=== PATIENT | female | born 1985 | race Caucasian/White ===

== ENCOUNTER 2016-05-31 10:58 | Emergency (ER) | payer SELFPAY ==
[~2016-05-31] VITALS: Ht 175.3 cm; Wt 104.3 kg
[2016-05-31 12:25] VITALS: BP 136/91
[2016-05-31] MEDS ORDERED: CLIN-44 PO (13:12)
[2016-05-31] MEDS ORDERED: HYDR-971 PO (13:12)
--- NOTE | 2016-05-31 13:12 | PHYS DOC ---
Past Medical History Past Medical History: Bipolar Additional Past Medical Histor: depression, polysubstance abuse Past Surgical History: No Surgical History Smoking: Less than 1pk/day Alcohol Use: None Additional Information: alcoholic quit 2 months ago Drug Use: None Adult General Chief Complaint Chief Complaint: DENTAL PROBLEM HPI HPI Patient is a 31 year old female who presents with left neck and jaw swelling starting yesterday. She states that the pain and swelling is worse with eating. She feels that it has now spread to the right side as well. She reported a subjective fever last night. She denies sore throat, cough, rash, ear pain, shortness of breath, or dental pain. She does not have a PCP but sees a psychiatrist at [facility]. She has received all of her routine vaccinations. Review of Systems Review of Systems Constitutional: Reports subjective fever. Eyes: Denies change in visual acuity, redness, or eye pain. [] HENT: Denies ear pain, nasal congestion or sore throat. Jaw pain and swelling. Respiratory: Denies cough or shortness of breath. [] Musculoskeletal: Denies back pain or joint pain. [] Integument: Denies rash or skin lesions. [] Neurologic: Denies headache, focal weakness or sensory changes. [] Allergies Allergies Allergies Coded Allergies Type Severity Reaction Last Updated Verified No Known Drug Allergies 11/21/15 No Physical Exam Physical Exam Constitutional: Well developed, well nourished, no acute distress, non-toxic appearance. [] HENT: Normocephalic, atraumatic, bilateral external ears normal, oropharynx moist, no oral exudates, nose normal. Bilateral seems without erythema or bulging. There is no posterior pharyngeal erythema or tonsillar edema. There are no oral lesions consistent with [place] spots. Eyes: PERRLA, EOMI, conjunctiva normal, no discharge. [] Neck: Normal range of motion, no tenderness, supple, no stridor. There is no significant swelling of the neck or jaw. The patient has pain over the parotid region bilaterally. Cardiovascular: Heart rate regular rhythm, no murmur [] Lungs & Thorax: Bilateral breath sounds clear to auscultation without wheezes, rales, or rhonchi. Skin: Warm, dry, no erythema, no rash. [] Neurologic: Alert and oriented X 3, normal motor function, normal sensory function, no focal deficits noted. [] Psychologic: Affect normal, judgement normal, mood normal. [] Current Patient Data Vital Signs Vital Signs Date Time Temp Pulse Resp B/P Pulse Ox O2 Delivery O2 Flow Rate FiO2 05/31/16 12:25 97.9 68 16 99 Room Air 97.9 EKG EKG [] Radiology/Procedures Radiology/Procedures [] Course & Med Decision Making Course & Med Decision Making Pertinent Labs and Imaging studies reviewed. (See chart for details) Patient is a 31-year-old female who presents with pain and swelling in the left neck and jaw spreading to the right side as well. Upon arrival to the emergency department, she is afebrile. There is no appreciable swelling on my exam, however she has not eaten for some time now due to the pain associated with eating. The swelling and pain or intermittent, more consistent with parotid gland obstructing stone. It is atypical to have this bilaterally, however her presentation is not consistent with mumps. She is discharged home with prescription for clindamycin and pain medication. She is given contact information for ENT for follow-up. Return precautions were discussed. She verbalizes understanding and agrees with plan. Dragon Disclaimer Dragon Disclaimer This electronic medical record was generated, in whole or in part, using a voice recognition dictation system. Departure Departure Impression: Primary Impression: Parotid sialolithiasis Disposition: 01 HOME, SELF-CARE Condition: STABLE Referrals: NO PCP (PCP) Patient Instructions: Salivary Stone Additional Instructions: Your pain and swelling appear to be due to a stone in the salivary gland that is causing a blockage of the saliva. The main treatment for this is to eat foods that cause it is solidly a lot, such as lemon drops, two fourths the stone out. You've been prescribed antibiotics to prevent infection in the salivary gland. Please complete all of the antibiotics. Please take the prescribed pain medication as directed. Do not drive or operate heavy machinery while taking pain medication. If your pain or swelling continue, please follow-up with Dr. Ordoñez, ENT doctor. To schedule an appointment with Dr. Ordoñez, call [phone]. Inform them that you are a [facility] resident on scheduling your appointment. Return to the emergency department if you have high fever, sores in your mouth, rash, difficulty breathing or swallowing, or other new or concerning symptoms. Scripts Hydrocodone/Apap 5-325 ([place] 5-325 Tablet)1 Each Tablet1 Tab PO PRN Q6HRS PRN PAIN #12 TAB Prov:BRYANT OLSON 05/31/16 Clindamycin Hcl 150 Mg Capsule2 Cap PO QID 10 Days Prov:BRYANT OLSON 05/31/16 BRYANT OLSON May 31, 2016 13:12
== END 2016-05-31 13:19 | disposition home or self-care (01) ==
LOC: ER 10:58
DX: K11.5 Sialolithiasis (principal); R50.9 Fever, unspecified; F17.200 Nicotine dependence, unspecified, uncomplicated; F32.9 Major depressive disorder, single episode, unspecified; F31.9 Bipolar disorder, unspecified
CPT/HCPCS: 99283

== ENCOUNTER 2019-10-28 18:00 | Emergency (ER) | payer SELFPAY ==
[~2019-10-28] VITALS: Ht 177.8 cm; Wt 116.3 kg
[~2019-10-28 18:00] MED LIST: CLIN150C14 PO; HYDR-3164 PO
[2019-10-28 21:31] LABS: BILIRUBIN,URINE NEGATIVE (NEG); CLARITY,URINE CLOUDY; COLOR,URINE AMBER; NITRITE,URINE POSITIVE (NEG); PH,URINE 5.5 (<5.0-8.0); PROTEIN,URINE NEGATIVE (NEG-TRACE); UROBILINOGEN,URINE 0.2 mg/dL (0.2 mg/dL)
[2019-10-28 21:43] LABS: BACTERIA,URINE MANY /HPF (0-FEW); RBC,URINE OCC /HPF (0-2); SQUAMOUS EPITHELIAL CELL,UR MOD /LPF
[2019-10-28] MEDS ORDERED: AZITHROMYCIN 250 MG TABLET. PO ONE (22:00)
[2019-10-28] MEDS ORDERED: cefTRIAXone IM 250 MG VIAL IM ONE (22:00)
--- NOTE | 2019-10-28 22:44 | RAD ---
Exam: Ultrasound pelvis Indication: Pelvic pain, left adnexa tender to palpation Technique: Real-time grayscale and color Doppler images of the pelvis were obtained by the department water resources engineer. Comparisons: None FINDINGS: Uterus measures 9.2 x 5.1 x 4.3 cm. Endometrium is 8 mm in thickness. Nabothian cysts are noted. Ovaries are not visualized. This is likely technical. No free fluid. IMPRESSION: 1. Normal sonographic appearance of the uterus. 2. Ovaries are not visualized. Electronically signed by: Leslie Bocanegra MD (10/28/2019 10:42 PM) [id number]
--- NOTE | 2019-10-28 22:50 | PHYS DOC ---
Past Medical History Past Medical History: Anxiety, Bipolar, Depression, Schizophrenia Additional Past Medical Histor: depression, polysubstance abuse (DEIDRA BEE APRN) Past Surgical History: No Surgical History (DEIDRA BEE APRN) Smoking Status: Current Every Day Smoker Alcohol Use: Occasionally Drug Use: None (DEIDRA BEE APRN) General Adult EDM: Chief Complaint: FOREIGN BODY VAGINA HPI: HPI: Patient is a 34 year old female who presents to the emergency department with concerns of a tampon being stuck in her vagina for the last 10 days. She states that she is tried to remove it but has been unsuccessful. She reports having green vaginal discharge and a foul vaginal odor for the last week and a half. Patient reports nausea at this time but denies any vomiting, diarrhea, dysuria, hematuria, or increased urinary frequency. She denies having any fever, cough, fatigue, or abdominal pain patient states that she does have some pelvic discomfort intermittently. She currently denies any pain at this time. (DEIDRA BEE APRN) Review of Systems: Review of Systems: Constitutional: Denies fever or chills. [] Eyes: Denies change in visual acuity. [] HENT: Denies nasal congestion or sore throat. [] Respiratory: Denies cough or shortness of breath. [] Cardiovascular: Denies chest pain or edema. [] GI: Denies abdominal pain, nausea, vomiting, bloody stools or diarrhea. [] : Denies dysuria. [] Musculoskeletal: Denies back pain or joint pain. [] Integument: Denies rash. [] Neurologic: Denies headache, focal weakness or sensory changes. [] Endocrine: Denies polyuria or polydipsia. [] Lymphatic: Denies swollen glands. [] Psychiatric: Denies depression or anxiety. [] (DEIDRA BEE APRN) Heart Score: Risk Factors: Risk Factors: DM, Current or recent (<one month) smoker, HTN, HLP, family history of CAD, obesity. Risk Scores: Score 0 - 3: 2.5% MACE over next 6 weeks - Discharge Home Score 4 - 6: 20.3% MACE over next 6 weeks - Admit for Clinical Observation Score 7 - 10: 72.7% MACE over next 6 weeks - Early Invasive Strategies (DEIDRA BEE APRN) Current Medications: Current Medications Medications (Trade) Dose Ordered Sig/Jack Start Time Stop Time Status Last Admin Dose Admin Azithromycin (Zithromax) 1,000 mg 1X ONCE 10/28/19 22:00 10/28/19 22:01 DC 10/28/19 21:58 1,000 MG Ceftriaxone Sodium (Rocephin Im) 250 mg 1X ONCE 10/28/19 22:00 10/28/19 22:01 DC 10/28/19 21:58 250 MG (DEIDRA BEE APRN) Allergies: Allergies: Allergies Coded Allergies Type Severity Reaction Last Updated Verified No Known Drug Allergies 11/21/15 No (DEIDRA BEE APRN) Physical Exam: PE: Constitutional: Well developed, well nourished, no acute distress, non-toxic appearance, obese. HENT: Normocephalic, atraumatic, bilateral external ears normal, nose normal. Eyes: PERRLA, EOMI, conjunctiva normal, no discharge. Neck: Normal range of motion, no stridor. Cardiovascular: Heart rate regular rhythm Lungs & Thorax: Respirations even and unlabored, no retractions, no respiratory distress Pelvic Exam: Mortgage Counselor present Abdomen: Nontender, soft External Genitalia: Normal Skin Speculum: Normal vaginal mucosa, malodorous bloody vaginal discharge present, OS closed Bimanual: No adnexal masses; left adnexal TTP; CMT present Skin: Warm, dry, no erythema, no rash. Back: No tenderness Extremities: No cyanosis, ROM intact, no edema. Neurologic: Alert and oriented X 3, no focal deficits noted. Psychologic: Affect normal, judgement normal, mood normal. (DEIDRA BEE APRN) Current Patient Data: Labs: Laboratory Tests Test 10/28/19 21:11 10/28/19 21:29 Urine Collection Type Unknown Urine Color Love Urine Clarity Cloudy Urine pH 5.5 (<5.0-8.0) Urine Specific Henderson 1.025 (1.000-1.030) Urine Protein Negative mg/dL (NEG-TRACE) Urine Glucose (UA) Negative mg/dL (NEG) Urine Ketones (Stick) Negative mg/dL (NEG) Urine Blood Moderate (NEG) Urine Nitrite Positive (NEG) Urine Bilirubin Negative (NEG) Urine Urobilinogen Dipstick 0.2 mg/dL (0.2 mg/dL) Urine Leukocyte Esterase Small (NEG) Urine RBC Occ /HPF (0-2) Urine WBC 11-20 /HPF (0-4) Urine Squamous Epithelial Cells Mod /LPF Urine Bacteria Many /HPF (0-FEW) Urine Mucus Marked /LPF POC Urine HCG, Qualitative Hcg negative (Negative) Microbiology 10/28/19 Wet Prep - Final, Complete Vital Signs: Vital Signs Date Time Temp Pulse Resp B/P (MAP) Pulse Ox O2 Delivery O2 Flow Rate FiO2 10/28/19 19:12 98.9 116 20 123/79 (94) 97 Room Air 98.9 (DEIDRA BEE APRN) Labs: Laboratory Tests Test 10/28/19 21:11 10/28/19 21:29 10/28/19 23:00 Urine Collection Type Unknown Urine Color Love Urine Clarity Cloudy Urine pH 5.5 Urine Specific Henderson 1.025 Urine Protein Negative mg/dL Urine Glucose (UA) Negative mg/dL Urine Ketones (Stick) Negative mg/dL Urine Blood Moderate Urine Nitrite Positive Urine Bilirubin Negative Urine Urobilinogen Dipstick 0.2 mg/dL Urine Leukocyte Esterase Small Urine RBC Occ /HPF Urine WBC 11-20 /HPF Urine Squamous Epithelial Cells Mod /LPF Urine Bacteria Many /HPF Urine Mucus Marked /LPF Bedside Urine HCG, Qualitative Hcg negative White Blood Count 8.2 x10^3/uL Red Blood Count 4.18 x10^6/uL Hemoglobin 12.8 g/dL Hematocrit 38.4 % Mean Corpuscular Volume 92 fL Mean Corpuscular Hemoglobin 31 pg Mean Corpuscular Hemoglobin Concent 33 g/dL Red Cell Distribution Width 15.0 % Platelet Count 251 x10^3/uL Neutrophils (%) (Auto) 62 % Lymphocytes (%) (Auto) 27 % Monocytes (%) (Auto) 8 % Eosinophils (%) (Auto) 2 % Basophils (%) (Auto) 0 % Neutrophils # (Auto) 5.1 x10^3/uL Lymphocytes # (Auto) 2.2 x10^3/uL Monocytes # (Auto) 0.7 x10^3/uL Eosinophils # (Auto) 0.2 x10^3/uL Basophils # (Auto) 0.0 x10^3/uL Sodium Level 143 mmol/L Potassium Level 3.7 mmol/L Chloride Level 108 mmol/L Carbon Dioxide Level 31 mmol/L Anion Gap 4 Blood Urea Nitrogen 13 mg/dL Creatinine 1.3 mg/dL Estimated GFR (Cockcroft-Gault) 46.3 BUN/Creatinine Ratio 10 Glucose Level 106 mg/dL Calcium Level 8.8 mg/dL Total Bilirubin 0.1 mg/dL Aspartate Amino Transf (AST/SGOT) 13 U/L Alanine Aminotransferase (ALT/SGPT) 21 U/L Alkaline Phosphatase 45 U/L Total Protein 6.4 g/dL Albumin 3.1 g/dL Albumin/Globulin Ratio 0.9 Current Medications Medications (Trade) Dose Ordered Sig/Jack Route PRN Reason Start Time Stop Time Status Last Admin Dose Admin Ceftriaxone Sodium (Rocephin Im) 250 mg 1X ONCE IM 10/28/19 22:00 10/28/19 22:01 DC 10/28/19 21:58 Azithromycin (Zithromax) 1,000 mg 1X ONCE PO 10/28/19 22:00 10/28/19 22:01 DC 10/28/19 21:58 Iohexol (Omnipaque 300 Mg/ml) 60 ml 1X ONCE IV 10/28/19 23:45 10/28/19 23:46 DC 10/28/19 23:40 Info (CONTRAST GIVEN -- Rx MONITORING) 1 each PRN DAILY PRN MC SEE COMMENTS 10/28/19 23:45 10/30/19 23:44 Vital Signs: VS - Last 72 Hours, by Label Date Time Temp Pulse Resp B/P (MAP) Pulse Ox O2 Delivery O2 Flow Rate FiO2 10/28/19 19:12 98.9 116 20 123/79 (94) 97 Room Air 98.9 10/28/19 18:07 98.9 116 20 123/79 (94) 97 Room Air 98.9 (VANGIE RODRIGUEZ DO) EKG: EKG: [] (DEIDRA BEE APRN) Radiology/Procedures: Radiology/Procedures: PROCEDURE: PELVIS W/TV Exam: Ultrasound pelvis Indication: Pelvic pain, left adnexa tender to palpation Technique: Real-time grayscale and color Doppler images of the pelvis were obtained by the department manager of engineering. Comparisons: None FINDINGS: Uterus measures 9.2 x 5.1 x 4.3 cm. Endometrium is 8 mm in thickness. Nabothian cysts are noted. Ovaries are not visualized. This is likely technical. No free fluid. IMPRESSION: 1. Normal sonographic appearance of the uterus. 2. Ovaries are not visualized. [] (DEIDRA BEE APRN) Radiology/Procedures: [facility] [address] [place] [address] IMAGING REPORT Signed PATIENT: KAY COOL ACCOUNT: [id number] : 1985 LOCATION: ER AGE: 34 SEX: F EXAM STATUS: REG ER ORD. PHYSICIAN: DEIDRA BEE APRN REASON: PELVIC PAIN, L ADNEXAL TTP PROCEDURE: PELVIS W/TV Exam: Ultrasound pelvis Indication: Pelvic pain, left adnexa tender to palpation Technique: Real-time grayscale and color Doppler images of the pelvis were obtained by the department manager of engineering. Comparisons: None FINDINGS: Uterus measures 9.2 x 5.1 x 4.3 cm. Endometrium is 8 mm in thickness. Nabothian cysts are noted. Ovaries are not visualized. This is likely technical. No free fluid. IMPRESSION: 1. Normal sonographic appearance of the uterus. 2. Ovaries are not visualized. Electronically signed by: Leslie Yanez MD (10/28/2019 10:42 PM) [id number] DICTATED and SIGNED BY: LESLIE YANEZ MD DATE: 10/28/19 [address] [id number] IMAGING REPORT Signed PATIENT: KAY COOL ACCOUNT: [id number] : 1985 LOCATION: ER AGE: 34 SEX: F EXAM STATUS: REG ER ORD. PHYSICIAN: DEIDRA BEE APRN REASON: purulent pelvic discharge, CMT, L adnexal TTP PROCEDURE: CT ABD PELV W/ IV CONTRST ONLY PQRS Compliance Statement: One or more of the following individualized dose reduction techniques were utilized for this examination: 1. Automated exposure control 2. Adjustment of the mA and/or kV according to patient size 3. Use of iterative reconstruction technique CT ABD PELV W/ IV CONTRST ONLY Clinical Indication: Reason: purulent pelvic discharge, CMT, L adnexal TTP / Comparison: Pelvic ultrasound, earlier same day. Technique: Helical CT imaging of the abdomen and pelvis is performed after 60 cc of Omnipaque 300 IV contrast. Oral contrast not administered. Findings: Lung bases are clear. Cardiac size normal. Dome of the liver is excluded. The liver, gallbladder, spleen, pancreas, adrenal glands, abdominal aorta, and kidneys are normal. The stomach is unremarkable. There is no dilated small bowel. The appendix is normal. There is no colon wall thickening. No abdominal adenopathy or free fluid. Uterus and ovaries are unremarkable by CT. Urinary bladder is mostly decompressed. There is mild wall thickening. There is a small amount of air in the urinary bladder. Correlate to whether there has been recent catheterization. No inguinal adenopathy. No pelvic free fluid. Degenerative endplate spurring of the thoracic spine. IMPRESSION: Small amount of air in the urinary bladder. Correlate to whether has been recent catheterization. Mild urinary bladder wall thickening suggests nonspecific cystitis. Electronically signed by: Jann Polk MD (10/28/2019 11:50 PM) [facility] DICTATED and SIGNED BY: AJNN POLK MD DATE: 10/28/192349 (VANGIE RODRIGUEZ DO) Course & Med Decision Making: Course & Med Decision Making Pertinent Labs and Imaging studies reviewed. (See chart for details) 34-year-old female presented emergency room with concerns of a tampon being retained in her vagina. Pelvic exam is concerning for cervical motion tenderness and left adnexal tenderness to palpation. The patient's ovaries were not visualized on pelvic ultrasound. I consulted Dr. Rodriguez. A CT abdomen pelvis with IV contrast CBC and CMP were ordered. Advised him that I had treated the patient for suspected gonorrhea and chlamydia with IM Rocephin and p.o. Zithromax. Dr. Rodriguez will follow-up on labs and CT results. [] (DEIDRA BEE APRN) Dragon Disclaimer: Dragon Disclaimer: This electronic medical record was generated, in whole or in part, using a voice recognition dictation system. (BOGUSLAW,DEIDRA D GROUP WORK PROGRAM DIRECTOR) Departure Departure Impression: Primary Impression: Vaginal discharge Disposition: 01 HOME, SELF-CARE Condition: STABLE Referrals: NO PCP (PCP) Patient Instructions: Pelvic Inflammatory Disease Additional Instructions: Please follow-up with your primary care physician in the next 2 to 3 days. Please return the emergency department in 2 to 3 days should your symptoms not improve or worsen. [facility] [address] [place] [address] [facility] [address] [place] [address] [facility] [address] [facility] [place] [address] [facility] [address] [place] [address] [facility] [address] [place] [address] [facility] [address] [place] [address] [facility] [place] [address] [place] [address] [facility] [address] [place] [address] [facility] [address] [place] [address] [facility] [address] [place] [address] Scripts Ondansetron Hcl (ZOFRAN) 4 Mg Tablet 4 MG PO PRN TID PRN for NAUSEA, #9 nausea/vomiting Prov: VANGIE RODRIGUEZ DO 10/29/19 Doxycycline Hyclate (DOXYCYCLINE HYCLATE) 100 Mg Capsule 1 CAP PO BID for 14 Days, #28 CAP Prov: VANGIE RODRIGUEZ DO 10/29/19 Justicifation of Admission Dx: Justifications for Admission: Justification of Admission Dx: N/A (DEIDRA BEE GROUP WORK PROGRAM DIRECTOR) Justification of Admission Dx: N/A (VANGIE RODRIGUEZ DO) Attending Signature Attending Signature I have reviewed the non-physician practitioner's documentation, personally taken the patient's history, performed an exam and agree with the physical findings, clinical impression, and management plan. In brief patient is a 34-year-old female who presents with chief complaint of foul-smelling vaginal discharge. Pelvic exam performed by nurse practitioner reveals purulent discharge and positive cervical motion tenderness. No retained foreign body identified. Ultrasound was obtained and reveals no signs of torsion, abscess. CT abdomen pelvis was also followed up with given the ovaries were difficult to visualize. No signs of adnexal fluid collection concerning for abscess. Basic labs of been grossly unremarkable. Patient was treated with intramuscular Rocephin and azithromycin. Given her cervical motion tenderness she will be treated for pelvic inflammatory disease. She will be started on a 14-day course of doxycycline. Cultures were obtained during pelvic exam and are pending. Upon my repeat examination patient is sleeping in the exam room. Her repeat abdominal exam remains benign. Tolerated p.o. in emergency department and is agreeable to discharge home. She was instructed to return in 2 to 3 days should her symptoms not improve. Instructed to follow her primary care physician in 2 to 3 days. Stable for discharge. (VANGIE RODRIGUEZ DO) DEIDRA BEE APRN Oct 28, 2019 22:50 VANGIE RODRIGUEZ DO Oct 29, 2019 00:19
[2019-10-28 23:07] LABS: BASO % 0 % (0-3); EOS # 0.2 x10^3/uL (0.0-0.7); EOS % 2 % (0-3); HEMATOCRIT 38.4 % (36.0-47.0); HEMOGLOBIN 12.8 g/dL (12.0-15.5); LYMPH # 2.2 x10^3/uL (1.0-4.8); LYMPH % 27 % (24-48); MEAN CORPUSCULAR HEMOGLOBIN 31 pg (25-35); MEAN CORPUSCULAR HGB CONC 33 g/dL (31-37); MEAN CORPUSCULAR VOLUME 92 fL (79-100); MONO # 0.7 x10^3/uL (0.0-1.1); MONO % 8 % (0-9); NEUT # 5.1 x10^3/uL (1.8-7.7); NEUT % 62 % (31-73); PLATELET COUNT 251 x10^3/uL (140-400); RED BLOOD COUNT 4.18 x10^6/uL (3.50-5.40); WHITE BLOOD COUNT 8.2 x10^3/uL (4.0-11.0)
[2019-10-28 23:17] LABS: CALCIUM 8.8 mg/dL (8.5-10.1); CREATININE 1.3 mg/dL (0.6-1.0); GFR 46.3; POTASSIUM 3.7 mmol/L (3.5-5.1)
[2019-10-28 23:23] LABS: ALBUMIN 3.1 g/dL (3.4-5.0); ALBUMIN/GLOBULIN RATIO 0.9 (1.0-1.7); TOTAL BILIRUBIN 0.1 mg/dL (0.2-1.0); TOTAL PROTEIN 6.4 g/dL (6.4-8.2)
[2019-10-28] MEDS ORDERED: IOHEXOL 300 MG/ML 100ML VIAL. IV ONE (23:45)
[2019-10-28] MEDS ORDERED: CONTRAST GIVEN. MC PRN (23:45)
--- NOTE | 2019-10-28 23:53 | RAD ---
PQRS Compliance Statement: One or more of the following individualized dose reduction techniques were utilized for this examination: 1. Automated exposure control 2. Adjustment of the mA and/or kV according to patient size 3. Use of iterative reconstruction technique CT ABD PELV W/ IV CONTRST ONLY Clinical Indication: Reason: purulent pelvic discharge, CMT, L adnexal TTP / Comparison: Pelvic ultrasound, earlier same day. Technique: Helical CT imaging of the abdomen and pelvis is performed after 60 cc of Omnipaque 300 IV contrast. Oral contrast not administered. Findings: Lung bases are clear. Cardiac size normal. Dome of the liver is excluded. The liver, gallbladder, spleen, pancreas, adrenal glands, abdominal aorta, and kidneys are normal. The stomach is unremarkable. There is no dilated small bowel. The appendix is normal. There is no colon wall thickening. No abdominal adenopathy or free fluid. Uterus and ovaries are unremarkable by CT. Urinary bladder is mostly decompressed. There is mild wall thickening. There is a small amount of air in the urinary bladder. Correlate to whether there has been recent catheterization. No inguinal adenopathy. No pelvic free fluid. Degenerative endplate spurring of the thoracic spine. IMPRESSION: Small amount of air in the urinary bladder. Correlate to whether has been recent catheterization. Mild urinary bladder wall thickening suggests nonspecific cystitis. Electronically signed by: Jann Polk MD (10/28/2019 11:50 PM) [facility]
[2019-10-29] MEDS ORDERED: ONDA4TAB7 PO (00:17)
[2019-10-29] MEDS ORDERED: DOXY100C2 PO (00:17)
[2019-10-29 01:00] VITALS: BP 112/68
[2019-10-29] MEDS ORDERED: DOXYCYCLINE HYCLATE 100 MG TABLET PO ONE (01:00)
== END 2019-10-29 01:02 | disposition home or self-care (01) ==
LOC: ER 18:00
DX: T19.2XXA Foreign body in vulva and vagina, initial encounter (principal); M79.5 Residual foreign body in soft tissue; N89.8 Other specified noninflammatory disorders of vagina; F31.9 Bipolar disorder, unspecified; F20.9 Schizophrenia, unspecified; F17.200 Nicotine dependence, unspecified, uncomplicated; X58.XXXA Exposure to other specified factors, initial encounter; Y93.89 Activity, other specified; Y92.89 Other specified places as the place of occurrence of the external cause; Y99.8 Other external cause status
CPT/HCPCS: 36415; 74177; 76830; 76856; 80053; 81001; 81025; 85025; 87086; 87491; 87591; 96372; 99285; J0696; Q0111; Q9967